=== PATIENT | female | born 1990 | race Caucasian/White ===

== ENCOUNTER 2023-10-27 16:55 | Inpatient (IN) ==
--- NOTE | 2023-10-27 17:05 | Emergency Department Note ---
ED Provider Note History of Present Illness Chief Complaint: Abnormal Labs/Diagnostic Testing Stated Complaint: POSITIVE FOR PE, BLOOD CLOTS IN BOTH LEGS,ABN LABS Time Seen by Provider: 10/27/23 17:01 CT scan done due to shortness of breath and chest pain blood clots both lungs fam hx in father on bcps no recent travel/surgeries no smoking Home Medications Medication Instructions Recorded Confirmed Type propranolol 60 mg capsule,24 60 mg PO DAILY #30 caps 10/03/23 10/27/23 Rx hr,extended release albuterol sulfate 90 mcg/actuation 2 puff inhalation QID PRN 10/27/23 10/27/23 Rx aerosol inhaler shortness of breath or wheezing #8.5 grams melatonin 3 mg disintegrating 3 mg PO HS 10/27/23 10/27/23 History tablet Allergies Allergy/AdvReac Type Severity Reaction Status Date / Time No Known Allergies Allergy Verified 10/27/23 18:24 Past Med/Surg History Medical History Cyst of upper eyelid Surgical History History of dental surgery Family History Father Heart disease Diabetes Hypertension Mother Diabetes Hypertension Social History Smoking Status: Never smoker Second Hand Exposure: No; Hx Alcohol Use: No Hx Substance Use: No Preferred Language: Chilean Communication Ability: Effective Boxing Inspector Required: No Beliefs That Will Affect Care: None marital status: Current Living Situation: Spouse and Family current occupational status: employed current occupation: [employer] How many Children do You have: 0 Other Information That Helps Us Care for You: No Feels Safe at Home: Yes Safety Concerns: Feels Safe At This Time Do you think of yourself as: straight/heterosexual Gender Identity: Female Assistive Devices: None Physical Exam Vital Signs Vital Signs - 24 hr 10/27/23 17:01 10/27/23 18:23 10/27/23 19:00 Temperature 36.3 C L Temperature Source Temporal Artery Scan Pulse Rate 85 90 83 Pulse Rate from SpO2 Sensor 82 Respiratory Rate 19 19 Respiratory Effort / Characteristics Non-Labored Spontaneous Respiratory Depth Normal Respiratory Pattern Regular Blood Pressure 133/94 Blood Pressure Mean 107 Pulse Oximetry 98 97 Oxygen Delivery Method Room Air Sepsis Recent Fever Within 48 Hours No Sepsis New/Unexplained Change in Mental Status No Sepsis Action Taken by Nursing No Action Required 10/27/23 19:00 Temperature Temperature Source Pulse Rate Pulse Rate from SpO2 Sensor Respiratory Rate Respiratory Effort / Characteristics Respiratory Depth Respiratory Pattern Blood Pressure 124/86 Blood Pressure Mean 107 Pulse Oximetry Oxygen Delivery Method Sepsis Recent Fever Within 48 Hours Sepsis New/Unexplained Change in Mental Status Sepsis Action Taken by Nursing Course Administered Medications Heparin Sodium/Dextrose (Heparin Sodium/Dextrose) 25,000 units in 500 mls @ 22 mls/hr IV .[id number] [facility]; Protocol Stop: 10/28/23 09:00 Last Admin: 10/27/23 18:36 Dose: 1,100 units/hr, 22 mls/hr Documented By: DADA Co-signed By: FREDA Melatonin (Melatonin 3 Mg Tab) 3 mg PO HS [facility] Stop: 11/26/23 20:59 Last Admin: 10/27/23 22:12 Dose: Not Given Documented By: LISA Discontinued Medications Heparin Sodium (Porcine) (Heparin Sod (Porcine) 1000 Unit/Ml) 1 units IV NOW ONE Stop: 10/27/23 17:37 Last Admin: 10/27/23 18:36 Dose: 5,000 units Documented By: DADA Co-signed By: FREDA Heparin Sodium/Dextrose (Heparin Iv Adult Wt-Based Standard W/ Initial Bolus Protocol) 1 each IV NOW [facility]; Protocol Stop: 10/27/23 17:21 Last Admin: 10/27/23 18:37 Dose: Not Given Documented By: DADA Medical Decision Making Laboratory Data 10/27/23 17:16 10/27/23 17:28 Lab Results 10/27/23 10/27/23 Range/Units 17:16 17:28 WBC 10.24 (4.8-10.8) K/ul RBC 4.91 (4.20-5.40) M/uL Hgb 14.5 (12.0-16.0) g/dl Hct 43.5 (37.0-47.0) % MCV 88.6 (80.0-100.0) fL MCH 29.5 (25.0-34.0) pg MCHC 33.3 (32.0-36.0) g/dL RDW Std Deviation 41.7 (36.4-46.3) fL RDW Coeff of Sanna 12.8 (11.5-14.5) % Plt Count 284 (130-400) K/uL MPV 10.2 (9.4-12.4) fL Immature Gran % (Auto) 0.6 % Neut % (Auto) 58.2 % Lymph % (Auto) 32.1 % Chester % (Auto) 6.1 % Eos % (Auto) 2.4 % Baso % (Auto) 0.6 % Neut # (Auto) 5.96 (1.40-6.50) K/uL Lymph # (Auto) 3.29 (1.20-3.40) K/uL Chester # (Auto) 0.62 H (0.11-0.59) K/uL Eos # (Auto) 0.25 (0.00-0.50) K/uL Baso # (Auto) 0.06 (0.00-0.20) K/uL Immature Gran # (Auto) 0.06 (0.01-0.20) K/uL PT 10.8 (9.0-12.0) Seconds INR 1.0 (0.9-1.1) APTT 28 (21-31) Seconds PTT Ratio 1.0 Sodium 135 L (136-145) mmol/L Potassium 4.3 (3.5-5.1) mmol/L Chloride 105 (98-107) mmol/L Carbon Dioxide 22 (21-32) mmol/L Anion Gap 8 (3-11) BUN 12 (6-23) mg/dl Creatinine 1.03 (0.6-1.2) mg/dl Est Cr Clr Drug Dosing 74.1 ml/min Est GFR ( Amer) 81.6 ml/min Est GFR (Non-Af Amer) 70.4 ml/min BUN/Creatinine Ratio 11.7 (10-20) Glucose 86 (70-99(Fasting)) mg/dl Calcium 9.4 (8.6-10.3) mg/dl Total Bilirubin 0.5 (0.2-1.0) mg/dl AST 16 (13-39) U/L ALT 13 (7-52) U/L Alkaline Phosphatase 74 (34-104) U/L Troponin I High Sens 5.1 (0-14) pg/ml Total Protein 7.8 (6.0-8.3) gm/dl Albumin 4.2 (3.4-5.0) gm/dl Globulin 3.6 (2.5-4.0) gm/dl Albumin/Globulin Ratio 1.2 (0.9-2) Imaging Data Radiologist's Impression: Venous Doppler Study 10/27/23 17:06 ULTRASOUND BILATERAL LOWER EXTREMITY VENOUS CLINICAL HISTORY: Pulmonary embolus COMPARISON STUDY: No priors. TECHNIQUE: Real-time, grayscale, and color Doppler sonography of the deep veins of the right and left lower extremity was performed from the inguinal crease to the calf. Compression and augmentation were utilized. FINDINGS: Right lower extremity: There is nearly occlusive deep venous thrombosis in the popliteal vein. This extends into the calf within branches of the posterior tibial, peroneal, and gastrocnemius veins. The common femoral and superficial femoral veins are patent and normally compressible. The greater saphenous vein and the profunda femoris vein at the junction with the common femoral vein are clear. Left lower extremity: There is no sonographic evidence of deep venous thrombosis in the left lower extremity. The common femoral, superficial femoral, and popliteal veins are patent and normally compressible. The greater saphenous vein and the profunda femoris vein at the junction with the common femoral vein are clear. The visualized calf veins are patent. IMPRESSION: 1. Nearly occlusive deep venous thrombosis in the right popliteal vein which extends distally into calf vessels. 2. There is no sonographic evidence of deep venous thrombosis in the left lower extremity. ACT 112: Negative or not required by law. Electronically signed by: Kyle Morgan M.D. 10/27/2023 6:27 PM Discharge Plan Visit Data Chief Complaint: Abnormal Labs/Diagnostic Testing Stated Complaint: POSITIVE FOR PE, BLOOD CLOTS IN BOTH LEGS,ABN LABS ED Provider: Jerome Cedeno ED Midlevel Provider: Hallie Hein Patient Disposition: Admitted As Inpatient Discharge Instructions Interventions: ED Discharge Assessment Last Done: 10/27/23 19:38
[2023-10-27] MEDS ORDERED: Heparin IV Adult Wt-Based Standard w/ INITIAL Bolus Protocol IV STA (17:20)
[2023-10-27] MEDS ORDERED: HEPARIN SOD (PORCINE) 1000 UNIT/ML IV ONE (17:36)
[2023-10-27] MEDS ORDERED: HEPARIN SODIUM/DEXTROSE 25,000 UNITS/500 ML BAG IV SCH (17:45)
[2023-10-27 18:06] LABS: Basophils # (auto) 0.06 K/uL (0.00-0.20); Basophils % (auto) 0.6 %; Eosinophils # (auto) 0.25 K/uL (0.00-0.50); Eosinophils % (auto) 2.4 %; Hematocrit (blood only) 43.5 % (37.0-47.0); Hemoglobin 14.5 g/dl (12.0-16.0); Immature Granulocytes # (auto) 0.06 K/uL (0.01-0.20); Immature Granulocytes % (auto) 0.6 %; Lymphocytes # (auto) 3.29 K/uL (1.20-3.40); Lymphocytes % (auto) 32.1 %; Mean Corpuscular Hemoglobin 29.5 pg (25.0-34.0); Mean Corpuscular Hgb Conc 33.3 g/dL (32.0-36.0); Mean Corpuscular Volume 88.6 fL (80.0-100.0); Mean Platelet Volume 10.2 fL (9.4-12.4); Monocytes # (auto) 0.62 K/uL (0.11-0.59); Monocytes % (auto) 6.1 %; Neutrophils # (auto) 5.96 K/uL (1.40-6.50); Neutrophils % (auto) 58.2 %; Platelet Count 284 K/uL (130-400); RDW Coefficient of Variation 12.8 % (11.5-14.5); RDW Standard Deviation 41.7 fL (36.4-46.3); Red Blood Count 4.91 M/uL (4.20-5.40); White Blood Count 10.24 K/ul (4.8-10.8)
[2023-10-27 18:14] LABS: Albumin Globulin Ratio 1.2 (0.9-2); Albumin Level 4.2 gm/dl (3.4-5.0); BUN Creatinine Ratio 11.7 (10-20); Bilirubin,Total 0.5 mg/dl (0.2-1.0); Calcium 9.4 mg/dl (8.6-10.3); Creatinine Clr Calc Pharmacy 74.1 ml/min; Est GFR (African American) 81.6 ml/min; Est GFR (Non-African American) 70.4 ml/min; Globulin 3.6 gm/dl (2.5-4.0); Potassium 4.3 mmol/L (3.5-5.1); Total Protein 7.8 gm/dl (6.0-8.3)
[2023-10-27 18:20] LABS: Troponin I High Sensitivity 5.1 pg/ml (0-14)
--- NOTE | 2023-10-27 18:28 | Ultrasound Report ---
ULTRASOUND BILATERAL LOWER EXTREMITY VENOUS CLINICAL HISTORY: Pulmonary embolus COMPARISON STUDY: No priors. TECHNIQUE: Real-time, grayscale, and color Doppler sonography of the deep veins of the right and left lower extremity was performed from the inguinal crease to the calf. Compression and augmentation wer e utilized. FINDINGS: Right lower extremity: There is nearly occlusive deep venous thrombosis in the popliteal vein. This e xtends into the calf within branches of the posterior tibial, peroneal, and gastrocnemius veins. The common femoral and superficial femoral veins are patent and normally compressible. The greater saphen ous vein and the profunda femoris vein at the junction with the common femoral vein are clear. Left lower extremity: There is no sonographic evidence of deep venous thrombosis in the left lower ex tremity. The common femoral, superficial femoral, and popliteal veins are patent and normally marilu sible. The greater saphenous vein and the profunda femoris vein at the junction with the common femor al vein are clear. The visualized calf veins are patent. IMPRESSION: 1. Nearly occlusive deep venous thrombosis in the right popliteal vein which extends distally into ca lf vessels. 2. There is no sonographic evidence of deep venous thrombosis in the left lower extremity. ACT 112: Negative or not required by law. Electronically signed by: yKle Morgan M.D. 10/27/2023 6:27 PM
--- NOTE | 2023-10-27 18:53 | History & Physical Report ---
Date of Service October 27, 2023 Assessment & Plan (1) Bilateral pulmonary embolism: Plan: Patient with bilateral PE found on CT ordered by PCP. Patient admitted for observation as clot burden is significant. Coag panel pending. Discontinue OCPs. Heparin gtt started. Likely transition to DOAC tomorrow. Anticipate discharge tomorrow - would prioritize early discharge with inclement weather pending. Will need close outpatient f/u. Coag panel pending Heparin gtt d/c OCPs Tylenol PRN for pain (2) Oral contraceptive use: Plan: d/c combination OCPs. Discuss alternative contraception methods with PCP (3) Right leg DVT: Plan: See above (4) Family history of blood clots: Plan: See above Plan Code status: full DVT ppx: heparin gtt Dispo: PCU/Tele History of Present Illness Chief Complaint: Bilateral PE Primary Care Provider: Luzma Salazar, 33 y/o healthy female presents to the ED after being diagnosed with bilateral PEs. Patient experienced SOB and left sided chest pressure last evening when walking to the car. She was seen in her PCP's office today and a CT PE protocol was ordered. Patient was found to have significant clot burden and was directed to the ED. Upon presentation patient HDS without oxygen requirement or increased work of breathing. RLE Doppler with nearly occlusive DVT. LLE without VTE. Coagulability panel ordered. Admission was called as patient with extensive clot burden and risk of decompensation. Started on heparin gtt. Upon my interview patient is lying comfortably in bed. Does report some shortness of breath and left sided chest tightness. No nausea or vomiting. No headache or vision changes. No nausea or vomiting. No recent illnesses. Patient otherwise healthy. Takes combo-OCPs. No smoking history. No recent travel. Father does have a history of blood clots. Allergies Allergy/AdvReac Type Severity Reaction Status Date / Time No Known Allergies Allergy Verified 10/27/23 18:24 Home Medications Medication Instructions Recorded Confirmed Type propranolol 60 mg capsule,24 60 mg PO DAILY #30 caps 10/03/23 10/27/23 Rx hr,extended release albuterol sulfate 90 mcg/actuation 2 puff inhalation QID PRN 10/27/23 10/27/23 Rx aerosol inhaler shortness of breath or wheezing #8.5 grams melatonin 3 mg disintegrating 3 mg PO HS 10/27/23 10/27/23 History tablet Past Med/Surg History Medical History Cyst of upper eyelid Surgical History History of dental surgery Family History Father Heart disease Diabetes Hypertension Mother Diabetes Hypertension Social History Smoking Status: Never smoker Second Hand Exposure: No; Hx Alcohol Use: No Hx Substance Use: No Preferred Language: Tajik marital status: Current Living Situation: Spouse current occupational status: employed 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 How many Children do You have: 0 Feels Safe at Home: Yes Do you think of yourself as: straight/heterosexual Gender Identity: Female Review of Systems 2 Review of Systems: See HPI Physical Exam 2 Physical Exam: Gen: well appearing female HEENT: AT NC MMM CV: RRR no m/r/g clinically well perfused, no LE edema, no calf tenderness Resp: CTAB no wheezing no increased work of breathing, no accessory muscle use Abd: non-distended MSK: no obvious deformities Neuro: alert and oriented Psych: appropriate mood and affect Results & Data Results & Data Vital Signs (Past 12 Hours) Vital Signs Temp Pulse Resp BP Pulse Ox O2 Del Method 10/27/23 18:23 90 10/27/23 17:01 36.3 C L 85 19 133/94 98 Room Air Laboratory Results 10/27/23 17:16 10/27/23 17:[address] Chest: FINDINGS: Thyroid: Imaged portions of the thyroid gland are normal in size and attenuation. Thoracic aorta: The thoracic aorta is normal in caliber and demonstrates standard 3-vessel arch anatomy. No dissection is seen. Pulmonary vasculature: The pulmonary trunk is top normal in caliber. There is extensive bilateral pulmonary embolus. Thrombus is seen within the distal right main pulmonary artery. This extends into the right upper, middle, and lower lobe pulmonary arteries into segmental and subsegmental branches. There is also thrombus within the distal left main pulmonary artery which extends into the left upper and left lower lobe arteries into segmental and subsegmental branches. There is also pulmonary ramus with lingular pulmonary artery. Heart: The heart appears mildly enlarged noting trace pericardial effusion. Lungs and pleural spaces: Evaluation of the lung parenchyma is modestly degraded by motion artifact. No airspace consolidation or pleural effusion is identified. The trachea and central airways are clear. Mediastinum: There is no mediastinal lymphadenopathy. Alicia: Clear. Axillae: There is no axillary lymphadenopathy. Upper abdomen: Partially visualized upper abdominal viscera is within normal limits. Skeletal structures: No lytic or blastic bony lesions are seen. IMPRESSION: 1. Extensive bilateral pulmonary embolus as above. 2. The lungs are clear. Venous Doppler Study: FINDINGS: Right lower extremity: There is nearly occlusive deep venous thrombosis in the popliteal vein. This extends into the calf within branches of the posterior tibial, peroneal, and gastrocnemius veins. The common femoral and superficial femoral veins are patent and normally compressible. The greater saphenous vein and the profunda femoris vein at the junction with the common femoral vein are clear. Left lower extremity: There is no sonographic evidence of deep venous thrombosis in the left lower extremity. The common femoral, superficial femoral, and popliteal veins are patent and normally compressible. The greater saphenous vein and the profunda femoris vein at the junction with the common femoral vein are clear. The visualized calf veins are patent. IMPRESSION: 1. Nearly occlusive deep venous thrombosis in the right popliteal vein which extends distally into calf vessels. 2. There is no sonographic evidence of deep venous thrombosis in the left lower extremity. Supervising Physician Co-Signing Physician Notes Patient seen and examined, chart reviewed, case discussed with Sandy Patricia MD and I agree with the assessment and plan as above except as otherwise noted Labs and images reviewed 33-year-old with acute shortness of breath andExtensive bilateral PE found and CTA. Has nearly occlusive DVT of the right popliteal vein extending distally to the calf vessels. 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 She reports that she had symptoms of shortness of breath which began as early as August but did not have leg swelling at that time and was much less severe than, only other risk factor is oral contraceptive which has been discontinued. Denies tobacco use. No hemodynamic instability no indication for thrombolysis no preceding trauma/injury. Due to highly extensive bilateral clot in both the lungs and right popliteal vein patient has been recommended for coagulable workup and initial treatment with heparin and monitoring overnight. Labs showed no signs of heart strain. Lungs are clear. No hypoxia. PESI 0. Patient has been started on heparin GTT, reasonable DOAC Eliquis candidate target for conversion. Agree with assessment and management as above Resident Activity Tracking Resident Involvement: Resident Care Provided Care Provided: Adult Hospital Medicine
[2023-10-27 18:55] LABS: Partial Thromboplastin Time 28 Seconds (21-31); Prothrombin Time 10.8 Seconds (9.0-12.0)
[2023-10-27] MEDS ORDERED: ACETAMINOPHEN 325 MG TAB PO PRN (19:59)
[2023-10-27] MEDS ORDERED: MELATONIN 3 MG TAB PO SCH (21:00)
[2023-10-28 01:22] LABS: Hematocrit (blood only) 38.4 % (37.0-47.0); Hemoglobin 12.9 g/dl (12.0-16.0); Mean Corpuscular Hemoglobin 30.1 pg (25.0-34.0); Mean Corpuscular Hgb Conc 33.6 g/dL (32.0-36.0); Mean Corpuscular Volume 89.7 fL (80.0-100.0); Mean Platelet Volume 10.1 fL (9.4-12.4); Platelet Count 245 K/uL (130-400); RDW Coefficient of Variation 12.7 % (11.5-14.5); RDW Standard Deviation 41.7 fL (36.4-46.3); Red Blood Count 4.28 M/uL (4.20-5.40)
[2023-10-28 01:36] LABS: BUN Creatinine Ratio 11.6 (10-20); Creatinine Clr Calc Pharmacy 88.9 ml/min; Est GFR (African American) 101.4 ml/min; Est GFR (Non-African American) 87.5 ml/min
[2023-10-28 01:46] LABS: ANTI-Xa, UFH(UnfractionatedHep 0.67 IU/ml (0.3-0.7)
--- NOTE | 2023-10-28 07:50 | Hospitalist Progress Note ---
Date of Service October 28, 2023 Assessment & Plan (1) Bilateral pulmonary embolism: Plan: Patient with bilateral PE found on CT ordered by PCP. Patient admitted for observation as clot burden is significant. Coag panel pending. Discontinue OCPs. Heparin gtt started. Likely transition to DOAC tomorrow. Anticipate discharge tomorrow - would prioritize early discharge with inclement weather pending. Will need close outpatient f/u. Coag panel pending Heparin gtt d/c OCPs Tylenol PRN for pain (2) Oral contraceptive use: Plan: d/c combination OCPs. Discuss alternative contraception methods with PCP (3) Right leg DVT: Plan: See above (4) Family history of blood clots: Plan: See above Plan Code status: full DVT ppx: heparin gtt Dispo: PCU/Tele Admission and Anticipated Discharge Date Admission Date: October 27, 2023 Review of Systems Review of Systems: See HPI Results & Data Results & Data Vital Signs (Past 12 Hours) Vital Signs Temp Pulse Pulse Resp BP BP Pulse Ox 10/28/23 07:41 36.8 C 70 18 109/74 96 10/28/23 04:07 36.6 C 70 16 111/77 10/28/23 01:05 81 10/28/23 00:47 81 10/27/23 22:38 37.1 C 84 20 113/82 97 10/27/23 21:53 37.0 C 16 127/84 98 10/27/23 20:00 123/87 10/27/23 20:00 97 H 20 97 O2 Del Method 10/28/23 07:41 Room Air 10/28/23 04:07 10/28/23 01:05 10/28/23 00:47 10/27/23 22:38 Room Air 10/27/23 21:53 Room Air 10/27/23 20:00 10/27/23 20:00
[2023-10-28] MEDS ORDERED: PROPRANOLOL HCL 60 MG LA CAP PO SCH (09:00)
[2023-10-28] MEDS ORDERED: APIXABAN 5 MG TABLET PO SCH ×2 (09:00→11:30)
[2023-10-28] MEDS ORDERED: [UNRECOGNIZED DRUG - REMARK] ONE (09:00)
--- NOTE | 2023-10-28 09:54 | Discharge Summary ---
Date of Service October 28, 2023 Admission HPI Per Admitting Provider 33 y/o healthy female presents to the ED after being diagnosed with bilateral PEs. Patient experienced SOB and left sided chest pressure last evening when walking to the car. She was seen in her PCP's office today and a CT PE protocol was ordered. Patient was found to have significant clot burden and was directed to the ED. Upon presentation patient HDS without oxygen requirement or increased work of breathing. RLE Doppler with nearly occlusive DVT. LLE without VTE. Coagulability panel ordered. Admission was called as patient with extensive clot burden and risk of decompensation. Started on heparin gtt. Upon my interview patient is lying comfortably in bed. Does report some shortness of breath and left sided chest tightness. No nausea or vomiting. No headache or vision changes. No nausea or vomiting. No recent illnesses. Patient otherwise healthy. Takes combo-OCPs. No smoking history. No recent travel. Father does have a history of blood clots. Admission Exam Per Admitting Provider Physical Exam: Gen: well appearing female HEENT: AT NC MMM CV: RRR no m/r/g clinically well perfused, no LE edema, no calf tenderness Resp: CTAB no wheezing no increased work of breathing, no accessory muscle use Abd: non-distended MSK: no obvious deformities Neuro: alert and oriented Psych: appropriate mood and affect Principal Diagnosis bilateral PE Discharge Exam Constitutional WD/WN, vitals as above Respiratory normal respiratory effort, lungs clear to auscultation Cardiovascular RRR, no murmur, no edema Skin no rashes, warm and dry Psychiatric A+Ox3, euthymic affect Discharge Data Allergies Allergy/AdvReac Type Severity Reaction Status Date / Time No Known Allergies Allergy Verified 10/27/23 18:24 Consultations 10/27/23 18:38 ED Decision to Admit Stat Ordered Studies 10/27/23 17:06 US venous doppler LE BI Stat Hospital Course (1) Bilateral pulmonary embolism: (2) Oral contraceptive use: (3) Right leg DVT: (4) Family history of blood clots: Plan Bilateral pulmonary embolism: Patient with bilateral PE found on CT ordered by PCP. Patient admitted for observation as clot burden was significant. Coag panel pending at time of discharge. Discontinued OCPs recommend discussing alternative control options with outpatient provider. Patient initially started on heparin drip, transitioned to Apixaban prior to discharge. Recommend Apixaban 10mg BID x 7 days, followed by 5mg BID thereafter. Total Time Total Time Spent Total Time Spent (In Minutes): <30 Discharge Plan Discharge Items Patient Disposition: Home - Self-Care Reason For Visit: PE Discharge Diagnosis: Bilateral PE Activity: Resume your previous activity Non-emergency contact: Primary Care Provider Call non-emergency contact if: you have any medication questions Follow-up/Referrals: Luzma Salazar DO [Primary Care Provider] - 11/07/23 1:00 pm Diet: Regular Addtl Attending Provider Instructions: You were admitted to the hospital for a pulmonary embolism, which is essentially a blood clot that gets lodged in the lungs. Your were started on blood thinning medication while in the hospital to address this. A discharge summary will be sent to your primary care physician to ensure continuity of care. Please bring this discharge summary with you to your next office appointment so that your provider can review it at that time. Medications: Your medication list has been reviewed and reconciled upon discharge to ensure accuracy and continuity of care. An updated list of all your medications is included with your hospital discharge paperwork. Please review this list closely and make note of any changes to your medications. - Please STOP taking your oral contraceptive medication. Please discuss alternative contraceptive options at your next PCP visit. - You were started on an anticoagulant (blood thinner) called Eliquis (Apixaban) while in the hospital. Please CONTINUE to take this medication (next dose tonight) with the following specifications: take 2 tabs (10mg) twice daily for the first 7 days, then take 1 tab (5 mg) twice daily thereafter. You will likely need to be on this medication for a minimum of 3 months, but your primary care provider will help determine the required length of treatment with this medication. Follow up appointments: - Make a follow up appointment with your PCP within the next week. It is very important that you follow up with them shortly after discharge from the hospital. - Keep all of your follow up appointments as already scheduled. If you cannot make an appointment, notify your provider. CONTACT YOUR PRIMARY CARE PROVIDER if you experience any of the following: - Difficulty following your treatment plan - Difficulty taking any of your medications CALL 911 OR GO TO THE EMERGENCY DEPARTMENT if you experience any of the following: - Sudden, severe abdominal pain or nausea/vomiting - Severe chest pain or chest pain that radiates to your jaw or arm - Sudden, severe shortness of breath or difficulty breathing Pending Studies at Discharge: No Stand-Alone Forms: My [facility] [employer], Smoking Cessation Medications and DC Order Prescriptions: New Eliquis 5 mg Tablet 10 mg PO BID Qty: 74 0RF Rx Instructions: Please take 10mg (2 tabs) twice daily for the first 7 days, then take 5mg (1 tab) twice daily thereafter. 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 melatonin 3 mg Tablet,Disintegrating 3 mg PO HS Discontinued norethindrone-e.estradiol-iron [Taysofy] 1 mg-20 mcg (24)/75 mg (4) capsule 1 cap PO DAILY Discharge Orders: Discharge Order (Routine); Ordered 10/28/23 Ordered By: Isaiah Justice Admission Data Admit Date/Time: 10/27/23 19:02 Attending Provider: Ramsey Pena Admit Provider: Sandy Patricia Primary Care Provider: Luzma Salazar Other Providers: Temo Kerr Other Interventions: Discharge Summary Assessment (RN) Last Done: 10/28/23 10:51 Supervising Physician Co-Signing Physician Notes I personally examined the patient and verified all hess points of history and exam, discussed case, and agree with decision making with Dr Justice feeling good feels up to going home. extensive discussion on PE, pathophys, treatment, superintendent [employer] risk, etc vitals noted nad heent nc at mmm breathing unlabored no accessory muscles good effort skin no rashes no pallor or icterus PE - eliquis. stable for home. ~3-6 months full dose anticoagulation, with risks for recurrence likely would benefit from indefinite proph dosing otherwise as above Resident Activity Tracking Resident Involvement: Resident Care Provided Care Provided: Adult Hospital Medicine
--- NOTE | 2023-10-28 17:44 | Billing Data ---
Date of Service October 28, 2023 Coding Level of Care Code 26100 IN/OBS DISCH 30 MIN/LESS
--- NOTE | 2023-10-29 21:08 | Electrocardiogram Report ---
Test Reason : Blood Pressure : / mmHG Vent. Rate : 079 BPM Atrial Rate : 079 BPM P-R Int : 170 ms QRS Dur : 076 ms QT Int : 400 ms P-R-T Axes : 060 086 018 degrees QTc Int : 459 ms Normal sinus rhythm T wave abnormality, consider anterior ischemia Abnormal ECG No previous ECGs available Confirmed by Noah Naidu ([id number]) on 10/29/2023 9:08:09 PM Referred By: REFERRED SELF Confirmed By:Noah Naidu
[2023-11-02 13:23] LABS: Factor 5 Mutation NEGATIVE
== END 2023-10-28 11:37 | disposition home or self-care (01) | DRG 176 ==
LOC: ED 16:55 → SUATTDRO 19:02 → EDINP 19:02 → 4W 19:38